=== PATIENT | female | born 2000 | race Caucasian/White ===

== ENCOUNTER 2022-01-06 05:30 | Emergency (ER) | payer OTHER ==
[~2022-01-06] VITALS: Ht 266.7 cm; Wt 95.3 kg
[~2022-01-06 05:30] MED LIST: PRON INH
[2022-01-06 05:35] VITALS: BP 139/70
--- NOTE | 2022-01-06 05:39 | NUR ---
Patient ambulated to bed 5.
--- NOTE | 2022-01-06 06:00 | NUR ---
Dr. Barlow examining patient.
[2022-01-06] MEDS ORDERED: IBUP-2213 PO ×2 (06:10→06:15)
[2022-01-06] MEDS ORDERED: OFLO5SOL27 LEFT EAR ×2 (06:12→06:15)
[2022-01-06] MEDS ORDERED: AMOX-1230 PO ×2 (06:12→06:15)
[2022-01-06 06:21] VITALS: BP 133/72
--- NOTE | 2022-01-06 06:21 | NUR ---
Patient discharged with v/s stable. Written and verbal after care instructions given and explained. Patient alert, oriented and verbalized understanding of instructions. Ambulatory with steady gait. All questions addressed prior to discharge. ID band removed. Patient advised to follow up with PMD. Rx of Amox-clav, Ibuprofen and Ofloxacin given. Patient educated on indication of medication including possible reaction and side effects. Opportunity to ask questions provided and answered.
== END 2022-01-06 06:21 | disposition home or self-care (01) ==
LOC: MED 05:30
DX: H65.92 Unspecified nonsuppurative otitis media, left ear (principal); H60.92 Unspecified otitis externa, left ear; J45.909 Unspecified asthma, uncomplicated; Z79.899 Other long term (current) drug therapy; Z79.2 Long term (current) use of antibiotics; Z79.1 Long term (current) use of non-steroidal anti-inflammatories (NSAID)
CPT/HCPCS: 99283